=== PATIENT | male | born 1955 | race African-American/Black ===

== ENCOUNTER 2025-08-31 19:23 | Emergency (ER) | payer OTHER ==
[~2025-08-31] VITALS: Ht 182.9 cm; Wt 109.0 kg
[2025-08-31 19:39] VITALS: TEMP 36.8; O2SAT 94
[2025-08-31 22:43] VITALS: BP 139/91; PULSE 95; RESP 16; O2SAT 99
== END 2025-08-31 23:18 | disposition home or self-care (01) ==
LOC: EDBD 19:23 → ER 19:23 → CMPBEDREQ 09-02 07:33
DX: F10.129 Alcohol abuse with intoxication, unspecified (principal); Y90.9 Presence of alcohol in blood, level not specified
CPT/HCPCS: 99283